=== PATIENT | female | born 1990 | race African-American/Black ===

== ENCOUNTER 2024-07-13 10:31 | Day surgery (SDC) | payer MEDICAID ==
[2024-07-11 14:01] LABS: Urine Bacteria None Seen /hpf (None Seen)
[2024-07-11 14:14] LABS: Basophils # (auto) 0 10 ^3/uL (0-0.2); Basophils % (auto) 0.9 % (0.0-2.0); Eosinophils # (auto) 0.1 10 ^3/uL (0-0.8); Eosinophils % (auto) 1.7 % (0.0-7.0); Hematocrit 33.5 % (36.0-46.0); Hemoglobin 11.1 g/dL (12.2-16.2); Lymphocytes # (auto) 1.2 10 ^3/uL (0.4-5.4); Lymphocytes % (auto) 30.8 % (10.0-50.0); Mean Corpuscular Hemoglobin 28.6 pg (28.0-32.0); Mean Corpuscular Hgb Conc. 33.2 g/dL (32.0-36.0); Mean Corpuscular Volume 86.2 fL (80.0-100.0); Monocytes # (auto) 0.2 10 ^3/uL (0-1.3); Monocytes % (auto) 4.3 % (0.0-12.0); Neutrophils # (auto) 2.5 10 ^3/uL (1.6-8.6); Neutrophils % (auto) 62.3 % (37.0-80.0); Nucleated Red Blood Cells % 0.3 %; Platelet Count (auto) 216 10^3/uL (140-450); Red Blood Cells 3.89 10^6/uL (4.0-5.20); Red Cell Distribution Width 15.2 % (11.8-14.3)
[2024-07-11 14:16] LABS: Urine Blood Negative /uL (Negative); Urine Clarity Clear (Clear); Urine Color Light-Yellow (Yellow); Urine Protein, UAD Negative (Negative); Urine Specific Gravity 1.026 (1.001-1.035); Urine Urobilinogen Normal (Negative); Urine WBC 1 /hpf (0 - 5); Urine pH 6.5 (5.0-9.0)
[2024-07-11 14:34] LABS: INR 1.01 (0.9-1.15); Partial Thromboplastin Time 26.5 SEC (24.5-34.5); Prothrombin Time 10.7 sec (9.3-11.8)
[2024-07-11 14:52] LABS: Alanine Aminotransferase 14 U/L (7-40); Alkaline Phosphatase 60 U/L (46-116)
[2024-07-11 14:53] LABS: Albumin 3.7 g/dL (3.2-4.8); Anion Gap 2 (5-15); Aspartate Aminotransferase 16 U/L (13-40); BUN/Creatinine Ratio 11.4 (10.0-20.0); Bilirubin, Total 0.3 mg/dL (0.2-1.0); Blood Urea Nitrogen 9 mg/dL (9-23); Calcium 9.7 mg/dL (8.7-10.4); Carbon Dioxide 31 mmol/L (20-31); Chloride 108 mmol/L (98-107); Glucose 88 mg/dL (74-106); Sodium 141 mmol/L (136-145); Total Protein 6.5 g/dL (5.7-8.2)
[~2024-07-13] VITALS: Ht 172.7 cm; Wt 109.8 kg
[2024-07-13] MEDS ORDERED: CELECOXIB 100 MG CAP PO ONE (12:00)
[2024-07-13] MEDS ORDERED: ACETAMINOPHEN IV 1000 MG/100ML (10MG/ML) IV ONE (12:00)
[2024-07-13] MEDS ORDERED: GABAPENTIN 400 MG CAP PO ONE (12:00)
[2024-07-13] MEDS ORDERED: GLYCOPYRROLATE 0.2 MG/ML 1ML VIAL ONE (12:24)
[2024-07-13] MEDS ORDERED: KETOROLAC TROMETH 30 MG/ML 1ML VIAL ONE (12:24)
[2024-07-13] MEDS ORDERED: EPINEPHrine HCL 1 MG/1 ML AMP ONE (12:24)
[2024-07-13] MEDS ORDERED: LIDOCAINE 2% (LOCAL ANESTH.) PF 5ml SDV ONE (12:24)
[2024-07-13] MEDS ORDERED: DexAMETHasone SOD PHOS 10MG/1ML VIAL INJ ONE (12:24)
[2024-07-13] MEDS ORDERED: ONDANSETRON HCL 4 MG/2 ML VIAL ONE (12:24)
[2024-07-13] MEDS ORDERED: PROPOFOL 10 MG/ML 20 ML IV ONE ×2 (12:24→15:26)
[2024-07-13] MEDS ORDERED: LIDOCAINE HCL 100 MG/5ML (2%) SYRG INJ IV ONE (12:28)
[2024-07-13] MEDS ORDERED: SODIUM CHLORIDE LOCK 10 ML ONE ×2 (12:29→15:42)
[2024-07-13] MEDS ORDERED: fentaNYL CITRATE 100 MCG/2 ML VL ONE (12:29)
[2024-07-13] MEDS ORDERED: KETAMINE 50mg/ML 1ml syringe ONE (12:29)
[2024-07-13] MEDS ORDERED: CELECOXIB 100 MG CAP ONE (13:15)
[2024-07-13] MEDS ORDERED: GABAPENTIN 400 MG CAP ONE (13:15)
[2024-07-13] MEDS ORDERED: ACETAMINOPHEN IV 100 ML IV ONE (13:15)
[2024-07-13] MEDS: ceFAZolin 2 GM/D5W100ml 100 ML IV ONE (14:15)
--- NOTE | 2024-07-13 15:28 | DVHOP2 ---
Operative Report - 2 Report Details Date: 07/13/24 Preop Diagnosis: 1. Left ankle instability 2. Left ankle ATFL sprain 3. Left ankle synovitis Postop Diagnosis: Same as preop Surgeon: Moises Curry MD Anesthesiologist: See anesthesia Anesthesia: General Implant: Internal brace Arthrex FiberTak x2 Consent: The patient was informed of the risks and benefits of the procedure. These include but are not limited to complications of anesthesia, postoperative infection, incomplete relief of symptoms, recurrence of symptoms, damage to blood vessels, nerves and tendons, deep venous thrombosis, pulmonary embolism and possible need for repeat surgery in the future. Complications: None Estimated Blood Loss: Minimal Fluids: See anesthesia Findings: Consistent with diagnosis Indications for Surgery: Worsening left ankle pain Name of Procedure Performed 1. Left ankle scope with extensive debridement (30565) 2. Left ankle brostrom repair (08126) Procedure Details Procedure Details: PRE-PROCEDURE INFORMATION: In the pre-op holding area, the extremity to be operated on was clearly marked and the patient verified correct laterality of the marking. The patient was transferred to the OR table and placed in a supine position. A timeout was performed in which identification of the correct patient, procedure, location, and materials was done. The left foot and leg were prepped and draped in normal sterile fashion. The foot and leg were exsanguinated and the thigh tourniquet was inflated to 250 mmHg. DESCRIPTION OF PROCEDURE: Attention was directed to the left anterior ankle where stab incisions were made at the medial and lateral ankle gutters. These incisions were deepened through blunt dissection to the level of the capsule, and utilizing the ankle arthroscopy set, the arthroscopy camera and the debrider were placed into the ankle joint and an extensive exam of the ankle joint was performed of the medial and lateral ankle gutters, the posterior talus and tibia as well as the anterior talus and tibia. These areas were visually inspected using the camera. It was noted that there was significant ankle synovitis, including hemorrhagic synovitis throughout the ankle specifically the medial and lateral gutters. There appeared to be no osteochondral defects or lesion. Utilizing arthroscopy debrider and utilizing the total arthroscopy set, there was extensive debridement of the aforementioned ankle synovitis. It was noted prior to performing the arthroscopy that the patient's ankle was maximally dorsiflexed and plantar flexed passively that there was significant audible and palpable clicking within the joint. After this extensive debridement was performed, there was no longer any palpable or audible clicking of this joint. After the ankle scope was performed, the incisions were closed with nylon suture. Attention was directed to the left lateral ankle where a curvilinear longitudi nal incision was made just anterior to the distal fibula. This incision was deepened through blunt and sharp dissection to the level of both the fibula and the talus so that both were visualized. Care was taken throughout dissection to avoid damage to neurovascular structures. An arthrotomy of the ankle joint was performed revealing normal appearing joint fluid. It was noted that the anterior talofibular ligament was attenuated and needed repair. The talar dome was inspected and noted to be free of osteochondral lesions. An arthrex internal brace was then drilled and placed in the lateral cortice of the talus. Utilizing a periosteal elevator, the periosteum of the anterior distal fibula was reflected in preparation for the placement of the soft tissue anchors. A soft tissue anchor was then placed proximal and distal to the internal brace. The internal brace was then drilled and placed in the distal aspect of the fibula. The knotless fibertak anchors were then used to recreate the ATFL and CFL ligaments. Prior to the procedure being performed, there was a positive anterior drawer sign. After, this procedure, there was a negative anterior drawer. The capsule was then oversewn with 2-0 Vicryl. The wound was irrigated copiously with normal saline and closed in layers All surgical wounds were irrigated copiously with saline and closed in layers with the aforementioned suture material. A dry sterile dressing was placed on the surgical extremity. The patient was placed in a cam boot POSTOPERATIVE INFORMATION: The patient tolerated the above noted procedure and anesthesia well and was transferred to the PACU with vital signs stable, and vascular status intact with capillary refill intact to all digits. Postoperative instructions reviewed in detail with the patient with written instructions provided. Patient will return to clinic in approximately 10-14 days for first postoperative visit. Patient has the number of the clinic and was instructed to call prior to that time should any problems, questions, or concerns arise. Condition Good Disposition Home MOISES CURRY DPM Jul 13, 2024 15:28
[2024-07-13 15:29] VITALS: TEMP 97.8; O2SAT 100
[2024-07-13] MEDS ORDERED: ESMOLOL HCL 10 ML IV ONE (15:34)
[2024-07-13] MEDS ORDERED: PHENYLEPHRINE HCL 10 MG/ML VL ONE (15:42)
[2024-07-13] MEDS ORDERED: ePHEDrine SULFATE 50 MG/ML AMP IV PRN (15:45)
[2024-07-13] MEDS ORDERED: NALOXONE HCL 0.4 MG/ML VIAL IV PRN (15:45)
[2024-07-13] MEDS ORDERED: FLUMAZENIL 0.1 MG/ML INJ 10ML MDV IV PRN (15:45)
[2024-07-13] MEDS ORDERED: ONDANSETRON HCL 4 MG/2 ML VIAL IV PRN (15:45)
[2024-07-13] MEDS ORDERED: HYDROmorphone HCL 2 MG/ML VL/or syr IV PRN (15:45)
[2024-07-13] MEDS ORDERED: fentaNYL CITRATE 100 MCG/2 ML VL IV PRN (15:45)
[2024-07-13] MEDS ORDERED: hydrALAZINE HCL 20 MG/ML VL IV PRN (15:45)
[2024-07-13] MEDS ORDERED: oxyCODONE HCL 5MG TAB PO PRN (15:45)
[2024-07-13 16:40] VITALS: BP 115/67; PULSE 78; RESP 16; O2SAT 100
== END 2024-07-13 16:58 | disposition home or self-care (01) ==
LOC: SUR 10:31
PROVIDERS: ATTEND Podiatrist
DX: S93.492A Sprain of other ligament of left ankle, initial encounter (principal); M25.372 Other instability, left ankle; M65.872 Other synovitis and tenosynovitis, left ankle and foot; G89.18 Other acute postprocedural pain; E66.01 Morbid (severe) obesity due to excess calories; Z68.38 Body mass index [BMI] 38.0-38.9, adult; X58.XXXA Exposure to other specified factors, initial encounter; Y93.89 Activity, other specified; Y92.89 Other specified places as the place of occurrence of the external cause; Y99.8 Other external cause status
CPT/HCPCS: 27698; 29898; 36415; 64445; 80053; 81001; 81025; 85025; 85610; 85730; C1713; J0171; J1100; J1885; J2003; J2371; J2405; J2704; J0131

== ENCOUNTER 2024-07-18 19:50 | Emergency (ER) | payer MEDICAID ==
[~2024-07-18] VITALS: Ht 172.7 cm; Wt 109.1 kg
--- NOTE | 2024-07-18 20:55 | DVH ---
EXAM: CT HEAD WITHOUT CONTRAST INDICATION: phelan TECHNIQUE: CT of the head without intravenous contrast. Radiation Dose Information: CT Dose: CTDI volume is 61.84 mGy. Dose-length product is 1114.89 mGy*cm The dose indicators for CT are the volume Computed Tomography (CT) Dose Index (CTDIvol) and the Dose Length Product (DLP), and are measured in units of mGy and mGy-cm, respectively. These indicators are not patient dose, but values generated from the CT scanner acquisition factors. The report includes radiation exposure data for exposures received during this examination. COMPARISON: None FINDINGS: There is no evidence of acute intracranial hemorrhage, extra-axial collection, mass effect, midline s hift, herniation or hydrocephalus. The ventricles, sulci and cisterns are age appropriate. The elias-white differentiation is intact. Patchy periventricular and subcortical white matter hypoattenuation is nonspecific but may be related to small vessel ischemic disease. Mucosal thickening left maxillary sinus and mastoid air cells are clear. The surrounding soft tissues and osseous structures are unremarkable. IMPRESSION: No acute intracranial hemorrhage No CT findings of territorial ischemia.
[2024-07-18 20:56] LABS: Basophils # (auto) 0.1 10 ^3/uL (0-0.2); Basophils % (auto) 0.8 % (0.0-2.0); Eosinophils # (auto) 0.1 10 ^3/uL (0-0.8); Eosinophils % (auto) 0.9 % (0.0-7.0); Hematocrit 35.3 % (36.0-46.0); Hemoglobin 12.1 g/dL (12.2-16.2); Mean Corpuscular Hgb Conc. 34.2 g/dL (32.0-36.0); Mean Corpuscular Volume 84.8 fL (80.0-100.0); Monocytes # (auto) 0.3 10 ^3/uL (0-1.3); Monocytes % (auto) 4.2 % (0.0-12.0); Neutrophils # (auto) 4.8 10 ^3/uL (1.6-8.6); Neutrophils % (auto) 78.1 % (37.0-80.0); Nucleated Red Blood Cells % 0.1 %; Platelet Count (auto) 192 10^3/uL (140-450); Red Blood Cells 4.17 10^6/uL (4.0-5.20); Red Cell Distribution Width 15.5 % (11.8-14.3); White Blood Cell 6.2 10^3/uL (4.4-10.8)
[2024-07-18 21:12] LABS: Alanine Aminotransferase 26 U/L (7-40); Albumin 4.1 g/dL (3.2-4.8); Alkaline Phosphatase 60 U/L (46-116); Anion Gap 3 (5-15); Aspartate Aminotransferase 25 U/L (13-40); BUN/Creatinine Ratio 16.9 (10.0-20.0); Bilirubin, Total 0.3 mg/dL (0.2-1.0); Blood Urea Nitrogen 13 mg/dL (9-23); Calcium 9.5 mg/dL (8.7-10.4); Carbon Dioxide 28 mmol/L (20-31); Chloride 106 mmol/L (98-107); Glucose 98 mg/dL (74-106); Potassium 4.3 mmol/L (3.5-5.1); Sodium 137 mmol/L (136-145); Total Protein 7.1 g/dL (5.7-8.2)
--- NOTE | 2024-07-18 21:53 | ED.PDOC ---
History of Present Illness HPI Comments 34 y/o F, with a Hx of obesity, seizures, and tachycardia, presents with c/o generalized back and mid-sternal chest pain, today. Patient endorses on onset of lower back pain on 07/14/24 that worsened and began radiating towards her upper back and mid-sternal chest area since following recent left ankle Sx 07/13/24 at [facility] for torn ankle ligaments then. Patient informs on not starting prescribed Abx Tx s/p Sx until today. Patient denies having any shortness of breath, palpitations, weakness, nausea, vomiting, fever, chills, or other associated symptoms or modifiers at this time. 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 Hx Family History Family History: Unknown Social History Smoker: Non-Smoker Alcohol: Denies ETOH Use Drugs: Denies Drug Use Lives In: Home Constitutional: reports: fatigue, weakness EENTM: denies: blurred vision, double vision, ear bleeding, ear discharge, ear drainage, ear pain, ear ringing, eye pain, eye redness, hearing loss, mouth pain, mouth swelling, nasal discharge, nose bleeding, nose congestion, nose pain, photophobia, tearing, throat pain, throat swelling, voice changes, others Respiratory: denies: cough, hemoptysis, orthopnea, SOB at rest, shortness of breath, SOB with excertion, stridor, wheezing, others Cardiovascular: reports: chest pain; denies: dizzy spells, diaphoresis, Dyspnea on exertion, edema, irregular heart beat, left arm pain, lightheadedness, palpitations, PND, syncope, others Gastrointestinal: denies: abdomen distended, abdominal pain, blood streaked bowels, constipated, diarrhea, dysphagia, difficulty swallowing, hematemesis, melena, nausea, poor appetite, poor fluid intake, rectal bleeding, rectal pain, vomiting, others Genitourinary: denies: abnormal vagina bleeding, burning, dyspareunia, dysuria, flank pain, frequency, hematuria, incontinence, pain, , vagina dischar ge, urgency, others Neurological: denies: dizziness, fainting, headache, left sided numbness, left sided weakness, numbness, paresthesia, pre-existing deficit, right sided numbness, right sided weakness, seizure, speech problems, tingling, tremors, weakness, others Musculoskeletal: reports: back pain; denies: gout, joint pain, joint swelling, muscle pain, muscle stiffness, neck pain, others Integumetry: denies: bruises, change in color, change in hair/nails, dryness, laceration, lesions, lumps, rash, wounds, others Allergic/Immunocompromised: denies: Difficulty Healing, Frequent Infections, Hives, Itching, others Hematologic/Lymphatic: denies: anemia, blood clots, easy bleeding, easy bruising, swollen glands, others Endocrine: denies: excessive hunger, excessive sweating, excessive thirst, excessive urination, flushing, intolerance to cold, intolerance to heat, unexplained weight gain, unexplained weight loss, others Psychiatric: denies: anxiety, bipolar disorder, depression, hopeless, panic disorder, schizophrenia, sleepless, suicidal, others All Other Systems: Reviewed and Negative Physical Exam General Appearance: Moderate Distress, Obese HEENT: Normal ENT Inspection, Pharynx Normal, TMs Normal Neck: Full Range of Motion, Non-Tender, Normal, Normal Inspection Respiratory: Chest Non-Tender, Lungs Clear, No Accessory Muscle Use, No Respiratory Distress, Normal Breath Sounds Cardiovascular: No Edema, No JVD, No Murmur, No Gallop, Normal Peripheral P ulses, Regular Rate/Rhythm Breast Exam: Deferred Gastrointestinal: No Organomegaly, Non Tender, No Pulsatile Mass, Normal Bowel Sounds, Soft Genitalia: Deferred Pelvic: Deferred Rectal: Deferred Extremities: No calf tenderness, Normal capillary refill, Normal inspection, Normal range of motion, Non-tender, No pedal edema Musculoskeletal : Apperance: Normal Neurologic: Alert, 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 Was a procedure done?: No EKG EKG : [place]: Normal Cardiac Rhythm: ST Block: None Hypertrophy: LAE ST: Normal Differential Dx Considerations may include: musculoskeletal pain, sprain, contusion, dislocation, fracture, DDD, arthritis, costochondritis, angina, anxiety, [place], PE, ACS X-Ray, Labs, Meds, VS Vital Signs Date Time Temp Pulse Resp B/P (MAP) Pulse Ox O2 Delivery O2 Flow Rate FiO2 07/18/24 22:37 74 16 97 Room Air* 0 21 07/18/24 22:37 98.1 84 16 146/82 (103) 97 98.1 07/18/24 20:06 99.7 104 16 112/69 (83) 99 Lab Test 07/18/24 20:15 07/18/24 20:05 Range/Units Urine Color Light-yellow Yellow Urine Clarity Clear Clear Urine pH 7.5 5.0-9.0 Urine Specific [place] 1.021 1.001-1.035 Urine Protein Negative Negative Urine Ketones Negative Negative Urine Blood Negative Negative /uL Urine Nitrite Negative Negative Urine Bilirubin Negative Negative Urine Urobilinogen Normal Negative mg/dL Urine Leukocyte Esterase Negative Negative /uL Urine RBC 1 0 - 4 /hpf Urine WBC 2 0 - 5 /hpf Urine Squamous Epithelial Cells Few <5 /hpf Urine Amorphous Crystals Few None Seen /hpf Urine Bacteria None seen None Seen /hpf Urine Glucose Normal Normal mg/dL White Blood Count 6.2 4.4-10.8 10^3/uL Red Blood Count 4.17 4.0-5.20 10^6/uL Hemoglobin 12.1 L 12.2-16.2 g/dL Hematocrit 35.3 L 36.0-46.0 % Mean Corpuscular Volume 84.8 80.0-100.0 fL Mean Corpuscular Hemoglobin 29.0 28.0-32.0 pg Mean Corpuscular Hemoglobin Concent 34.2 32.0-36.0 g/dL Red Cell Distribution Width 15.5 H 11.8-14.3 % Platelet Count 192 140-450 10^3/uL Mean Platelet Volume 9.6 6.9-10.8 fL Neutrophils (%) (Auto) 78.1 37.0-80.0 % Lymphocytes (%) (Auto) 16.0 10.0-50.0 % Monocytes (%) (Auto) 4.2 0.0-12.0 % Eosinophils (%) (Auto) 0.9 0.0-7.0 % Basophils (%) (Auto) 0.8 0.0-2.0 % Neutrophils # (Auto) 4.8 1.6-8.6 10 ^3/uL Lymphocytes # (Auto) 1.0 0.4-5.4 10 ^3/uL Monocytes # (Auto) 0.3 0-1.3 10 ^3/uL Eosinophils # (Auto) 0.1 0-0.8 10 ^3/uL Basophils # (Auto) 0.1 0-0.2 10 ^3/uL Nucleated Red Blood Cells 0.1 % D-Dimer, Quantitative 3.24 H 0.0-0.49 mg/L FEU Sodium Level 137 136-145 mmol/L Potassium Level 4.3 3.5-5.1 mmol/L Chloride Level 106 98-107 mmol/L Carbon Dioxide Level 28 20-31 mmol/L Anion Gap 3 L 5-15 Blood Urea Nitrogen 13 9-23 mg/dL Creatinine 0.77 0.550-1.02 mg/dL Glomerular Filtration Rate Calc 104 >90 mL/min BUN/Creatinine Ratio 16.9 10.0-20.0 Serum Glucose 98 74-106 mg/dL Calcium Level 9.5 8.7-10.4 mg/dL Total Bilirubin 0.3 0.2-1.0 mg/dL Aspartate Amino Transferase (AST) 25 13-40 U/L Alanine Aminotransferase (ALT) 26 7-40 U/L Alkaline Phosphatase 60 46-116 U/L Total Protein 7.1 5.7-8.2 g/dL Albumin 4.1 3.2-4.8 g/dL Current Medications Medications (Trade) Dose Ordered Sig/Evy Route Start Time Stop Time Status Last Admin Ketorolac Tromethamine (Toradol Injection) 30 mg ONCE ONCE IM 07/18/24 21:45 07/18/24 21:54 DC 07/18/24 22:37 Methylprednisolone Sodium Succinate (Solu Medrol) 125 mg ONCE ONCE IM 07/18/24 21:45 07/18/24 21:54 DC 07/18/24 22:[address] [address] Ph: [phone] DIAGNOSTIC IMAGING Diagnostic Imaging Report : [id number] Signed PATIENT: SHAUN SOLITARIO ACCT: [id number] UNIT: [id number] : 1990 LOC: ER ROOM / BED: / AGE / SEX: 34 / F ADM STATUS: REG ER SERVICE 22 ORDERING PHYSICIAN: ESTHER AGUILAR PROCEDURE(s): HWOCT - HEAD WITHOUT CONTRAST REASON: phelan ORDER NUMBER(s): [id number], ACCESSION NUMBER(s): [id number] EXAM: CT HEAD WITHOUT CONTRAST INDICATION: phelan TECHNIQUE: CT of the head without intravenous contrast. Radiation Dose Information: CT Dose: CTDI volume is 61.84 mGy. Dose-length product is 1114.89 mGy*cm The dose indicators for CT are the volume Computed Tomography (CT) Dose Index (CTDIvol) and the Dose Length Product (DLP), and are measured in units of mGy and mGy-cm, respectively. These indicators are not patient dose, but values generated from the CT scanner acquisition factors. The report includes radiation exposure data for exposures received during this examination. COMPARISON: None FINDINGS: There is no evidence of acute intracranial hemorrhage, extra-axial collection, mass effect, midline shift, herniation or hydrocephalus. The ventricles, sulci and cisterns are age appropriate. The elias-white differentiation is intact. Patchy periventricular and subcortical white matter hypoattenuation is nonspecific but may be related to small vessel ischemic disease. Mucosal thickening left maxillary sinus and mastoid air cells are clear. The surrounding soft tissues and osseous structures are unremarkable. IMPRESSION: No acute intracranial hemorrhage No CT findings of territorial ischemia. ATED BY: JAIME DAVIDSON Jr., DO DICTATED DATE/TIME: 07/18/242051 SIGNED BY: JAIME DAVIDSON Jr., SIGNED DATE/TIME: 07/18/242051 CC: X-Ray, Labs, Meds, VS Comment Imaging: X-rays and CT scans were reviewed and interpreted by this provider, imaging shows no fractures and no pathological disease. Pending radiology review. Laboratory: Labs reviewed and interpreted by this provider. No significant abnormalities noted. Patient has prior medical visits reviewed. Med reconciliation performed Vital signs reviewed Time of 1ST Reevaluation: 22:00 Reevaluation 1ST: Unchanged Patient Education/Counseling: Diagnosis, Treatment, Need For Follow Up (Patient advised to follow-up in the emergency room in the next 24 to 48 hours if symptoms do not improve. Advised follow-up with PCP in the next 3 to 5 days. Patient verbalized understanding. ) Family Education/Counseling: No Family Present Departure 1 Departure Time of Disposition: 00:27 Impression: Primary Impression: Muscle spasm of back Disposition: 01 HOME / SELF CARE / HOMELESS Condition: Fair e-Prescriptions Cyclobenzaprine Hcl (Cyclobenzaprine Hcl) 5 Mg Tab 1 TAB PO TID PRN, #30 TAB Prov: ESTHER AGUILAR 07/19/24 Discharged With: Self Critical Care Note Critical Care Time?: No Stability Stability form required: No Heart Score Heart Score: Heart Score Response (Comments) Value History Slightly Suspicious 0 EKG Normal 0 Age <45 0 Risk Factors No known risk factors 0 Troponin Normal limit 0 Total 0 I personally scribed for ESTHER AGUILAR ([email or web address]) on 07/18/24 at 21:53. Electronically submitted by Mukul Flores ([email or web address]). ESTHER AGUILAR Jul 18, 2024 21:53
[2024-07-18 22:37] VITALS: BP 146/82; PULSE 74; RESP 16; TEMP 98.1; O2SAT 97
[2024-07-18] MEDS: KETOROLAC TROMETH 30 MG/ML 1ML VIAL IM ONE (22:37)
[2024-07-18] MEDS: methylPREDNISolone SOD SUCC 125 MG/2 ML VL IM ONE (22:37)
[2024-07-18 22:54] LABS: Urine Bacteria None Seen /hpf (None Seen)
[2024-07-18 23:13] LABS: Urine Amorphous Crystal FEW /hpf (None Seen); Urine Blood Negative /uL (Negative); Urine Clarity Clear (Clear); Urine Color Light-Yellow (Yellow); Urine Protein, UAD Negative (Negative); Urine Specific Gravity 1.021 (1.001-1.035); Urine Urobilinogen Normal (Negative); Urine WBC 2 /hpf (0 - 5); Urine pH 7.5 (5.0-9.0)
[2024-07-19] MEDS ORDERED: CYCL-837 PO (00:28)
--- NOTE | 2024-07-19 12:52 | ECG ---
[facility] Test Date: 2024-07-18 Test Time: 20:05:05 Pat Name: SHAUN SOLITARIO Department: ER Room: Gender: F General Merchandise Salesperson: BAILEY : 1990 Requested By: ESTHER AGUILAR Order Number: [id number] Reading MD: Measurements Intervals [place] Rate: 104 P: 59 SC: 175 QRS: 29 QRSD: 88 T: 29 QT: 325 QTc: 428 Interpretive Statements Sinus tachycardia LAE, consider biatrial enlargement Borderline T abnormalities, anterior leads Please click the below link to view image of tracing.
== END 2024-07-19 00:30 | disposition home or self-care (01) ==
LOC: ER 19:50
DX: M54.59 Other low back pain (principal); R07.89 Other chest pain; Z98.890 Other specified postprocedural states
CPT/HCPCS: 36415; 70450; 80053; 81001; 85025; 85379; 93005; 96372; 99285; J1885; J2919